=== PATIENT | female | born 1955 | race Asian ===

== ENCOUNTER 2020-09-15 14:01 | Emergency (ER) | payer OTHER ==
[~2020-09-15] VITALS: Ht 157.5 cm; Wt 76.4 kg
[~2020-09-15 14:01] MED LIST: ACET-2247 PO; CALC-1196 PO; DOCU-275 PO; ENOX30DI5 SQ; FAMO20 PO; HYDR-4723 PO; MOM30 PO; PERCT PO
[2020-09-15 14:07] VITALS: BP 196/92
[2020-09-15] MEDS ORDERED: KETOROLAC TROMETHAMINE 30 MG/ML VIAL IM ONE (15:15)
== END 2020-09-15 16:40 | disposition home or self-care (01) ==
LOC: EMS 14:02
DX: S76.011A Strain of muscle, fascia and tendon of right hip, initial encounter (principal); F17.210 Nicotine dependence, cigarettes, uncomplicated; Z88.0 Allergy status to penicillin; X58.XXXA Exposure to other specified factors, initial encounter; Y93.89 Activity, other specified; Y92.89 Other specified places as the place of occurrence of the external cause; Y99.8 Other external cause status
CPT/HCPCS: 73502; 96372; 99283; J1885

== ENCOUNTER 2021-07-08 15:20 | Emergency (ER) | payer MEDICAID, OTHER ==
[~2021-07-08] VITALS: Ht 157.5 cm; Wt 66.4 kg
[~2021-07-08 15:20] MED LIST changes: -DOCU-275 PO; +DOCU-385 PO; -ENOX30DI5 SQ; +ENOX30SY19 SQ; +MAGN-169 PO; -MOM30 PO
[2021-07-08 15:41] VITALS: BP 148/82
[2021-07-08] MEDS ORDERED: PERTUSS(ACELL),DIPH,TET VAC/PF 0.5 ML SYRINGE IM. ONE (15:45)
[2021-07-08] MEDS ORDERED: IBUPROFEN 600 MG TABLET PO ONE (15:45)
[2021-07-08] MEDS ORDERED: DOXYCYCLINE HYCLATE 100 MG TABLET PO ONE (15:45)
[2021-07-08] MEDS ORDERED: BACITRACIN 0.9 GM PACKET OINTMENT TP ONE (15:45)
[2021-07-08] MEDS ORDERED: DOXY-354 PO (16:04)
== END 2021-07-08 16:22 | disposition home or self-care (01) ==
LOC: EMS 15:20
DX: L03.113 Cellulitis of right upper limb (principal); L03.116 Cellulitis of left lower limb; F17.210 Nicotine dependence, cigarettes, uncomplicated; Z98.890 Other specified postprocedural states; Z88.0 Allergy status to penicillin
CPT/HCPCS: 82962; 90471; 90715; 99284

== ENCOUNTER 2022-11-11 16:39 | Emergency (ER) | payer MEDICAID ==
[~2022-11-11] VITALS: Ht 160 cm; Wt 72.7 kg
[~2022-11-11 16:39] MED LIST changes: -ACET-2247 PO; -CALC-1196 PO; -DOCU-385 PO; +DOXY-354 PO; -ENOX30SY19 SQ; -FAMO20 PO; -HYDR-4723 PO; -MAGN-169 PO; -PERCT PO
[2022-11-11 17:12] VITALS: TEMP 97.5
[2022-11-11] MEDS ORDERED: IBUP-45 PO (18:25)
[2022-11-11] MEDS ORDERED: ACET-2080 PO (18:25)
[2022-11-11] MEDS ORDERED: METF-446 PO (18:28)
[2022-11-11] MEDS ORDERED: ATOR20TA65 PO (18:28)
[2022-11-11] MEDS ORDERED: AMLO5TAB66 PO (18:28)
[2022-11-11] MEDS ORDERED: LOSA-381 PO (18:28)
[2022-11-11] MEDS ORDERED: IBUPROFEN 600 MG TABLET PO ONE (18:30)
[2022-11-11] MEDS ORDERED: LIDOCAINE 1% 10 ML VIAL SQ ONE (18:30)
[2022-11-11 19:01] VITALS: BP 155/75; PULSE 65; RESP 16
== END 2022-11-11 19:08 | disposition home or self-care (01) ==
LOC: EMS 16:40
DX: S76.011A Strain of muscle, fascia and tendon of right hip, initial encounter (principal); M17.11 Unilateral primary osteoarthritis, right knee; M67.431 Ganglion, right wrist; E11.9 Type 2 diabetes mellitus without complications; I10 Essential (primary) hypertension; F17.210 Nicotine dependence, cigarettes, uncomplicated; Z98.890 Other specified postprocedural states; Z96.641 Presence of right artificial hip joint; Z88.0 Allergy status to penicillin; W19.XXXA Unspecified fall, initial encounter; Y93.89 Activity, other specified; Y92.89 Other specified places as the place of occurrence of the external cause; Y99.8 Other external cause status
CPT/HCPCS: 99284; 10160; 73502; 73552; J3490

== ENCOUNTER 2023-06-12 17:02 | Emergency (ER) | payer MEDICAID ==
[~2023-06-12] VITALS: Ht 157.5 cm; Wt 77.0 kg
[2023-06-12 17:13] VITALS: BP 174/81; PULSE 75; RESP 18; TEMP 97.9
[2023-06-12 17:25] LABS: GLUCOMETER DEV NAME(LOC) ER.6; GLUCOSE,POINT OF CARE 130 MG/DL (70-110)
[2023-06-12 18:28] LABS: BASOPHILS % (AUTO) 1.1 % (0.0-2.0); EOSINOPHILS % (AUTO) 3.8 % (1.0-6.0); HEMATOCRIT 42.8 % (36-46); HEMOGLOBIN 14.5 g/dL (12.0-16.0); LYMPHOCYTES % (AUTO) 51.2 % (22.0-44.0); MEAN CORPUSCULAR HEMOGLOBIN 31.8 pg (26.0-34.0); MEAN CORPUSCULAR HGB CONC 33.9 G/dL (31.0-37.0); MEAN CORPUSCULAR VOLUME 94 fL (80-100); MONOCYTES # (AUTO) 0.5 K/uL (0.1-1.0); MONOCYTES % (AUTO) 8.6 % (2.0-9.0); NEUTROPHILS # (AUTO) 2.1 K/uL (1.8-7.7); NEUTROPHILS % (AUTO) 35.3 % (40.0-70.0); PLATELET COUNT (AUTO) 222 K/uL (150-450); RED BLOOD CELL COUNT(AUTO) 4.56 MIL/uL (4.00-5.20); RED CELL DISTRIBUTION WIDTH 12.9 % (11.5-14.5); WHITE BLOOD COUNT (AUTO) 5.9 K/uL (4.5-11.0)
[2023-06-12 18:46] LABS: CALCIUM, TOTAL 9.1 mg/dL (8.8-10.5); CREATININE 0.95 mg/dL (0.60-1.30); POTASSIUM 4.5 mmol/L (3.5-5.1); TROPONIN I-HIGH SENSITIVITY 35 ng/L (<51)
[2023-06-12 18:52] LABS: ALBUMIN 3.7 g/dL (3.4-5.0); BILIRUBIN,TOTAL 0.5 mg/dL (0.1-1.0); TOTAL PROTEIN, SERUM 7.8 g/dL (6.4-8.2)
[2023-06-12] MEDS ORDERED: NAPROXEN 250 MG TABLET PO ONE (19:15)
[2023-06-12] MEDS: NAPROXEN 375 MG TABLET PO ONE (20:03)
[2023-06-12] MEDS ORDERED: NAPR-1197 PO (20:27)
== END 2023-06-12 20:00 | disposition home or self-care (01) ==
LOC: EMS 17:05
DX: G89.29 Other chronic pain (principal); M25.551 Pain in right hip; E11.9 Type 2 diabetes mellitus without complications; I10 Essential (primary) hypertension; F17.210 Nicotine dependence, cigarettes, uncomplicated; Z88.0 Allergy status to penicillin
CPT/HCPCS: 71045; 73502; 80053; 82962; 84484; 85025; 93005; 99285; 36415-L1; 36415-TC

== ENCOUNTER 2024-03-26 17:51 | Emergency (ER) | payer MEDICAID ==
[~2024-03-26] VITALS: Ht 160 cm; Wt 68.2 kg
[~2024-03-26 17:51] MED LIST changes: -DOXY-354 PO; +NAPR-1197 PO
[2024-03-26 17:55] VITALS: TEMP 99.7
[2024-03-26 18:06] LABS: COVID AG,FIA SOURCE NASAL SWAB
[2024-03-26 18:35] LABS: INFLUENZA TYPE A NEGATIVE FOR TYPE A (NEGATIVE); INFLUENZA TYPE B NEGATIVE FOR TYPE B (NEGATIVE)
[2024-03-26 18:44] LABS: SARS-COV2 (COVID) ANTIGEN,FIA Positive (Negative)
[2024-03-26] MEDS: ACETAMINOPHEN 325 MG TABLET PO ONE (18:56)
[2024-03-26 19:10] LABS: BASOPHILS % (AUTO) 0.5 % (0.0-2.0); EOSINOPHILS % (AUTO) 0.4 % (1.0-6.0); HEMATOCRIT 48.4 % (36-46); HEMOGLOBIN 16.2 g/dL (12.0-16.0); LYMPHOCYTES # (AUTO) 1.5 K/uL (1.0-4.8); LYMPHOCYTES % (AUTO) 34.1 % (22.0-44.0); MEAN CORPUSCULAR HGB CONC 33.4 G/dL (31.0-37.0); MEAN CORPUSCULAR VOLUME 93 fL (80-100); MONOCYTES # (AUTO) 0.6 K/uL (0.1-1.0); MONOCYTES % (AUTO) 14.8 % (2.0-9.0); NEUTROPHILS # (AUTO) 2.2 K/uL (1.8-7.7); NEUTROPHILS % (AUTO) 50.2 % (40.0-70.0); PLATELET COUNT (AUTO) 165 K/uL (150-450); RED BLOOD CELL COUNT(AUTO) 5.22 MIL/uL (4.00-5.20); WHITE BLOOD COUNT (AUTO) 4.4 K/uL (4.5-11.0)
[2024-03-26 19:23] LABS: CALCIUM, TOTAL 8.9 mg/dL (8.8-10.5); CREATININE 1.28 mg/dL (0.60-1.30); POTASSIUM 3.7 mmol/L (3.5-5.1)
[2024-03-26] MEDS ORDERED: CODE10LI2 PO (19:32)
[2024-03-26] MEDS ORDERED: BENZ-227 PO (19:32)
[2024-03-26] MEDS ORDERED: IBUP-1506 PO (19:32)
[2024-03-26 19:51] VITALS: BP 120/59; PULSE 83; RESP 18; O2SAT 96
== END 2024-03-26 19:55 | disposition home or self-care (01) ==
LOC: EMS 17:51
DX: U07.1 COVID-19 (principal); I10 Essential (primary) hypertension; F17.210 Nicotine dependence, cigarettes, uncomplicated; Z88.0 Allergy status to penicillin; Z96.641 Presence of right artificial hip joint; Z98.890 Other specified postprocedural states; Z20.822 Contact with and (suspected) exposure to COVID-19
CPT/HCPCS: 80048; 85025; 87804; 99283

== ENCOUNTER 2024-08-07 19:08 | Inpatient (IN) | payer MEDICAID ==
[~2024-08-07] VITALS: Ht 160 cm; Wt 75.3 kg
[~2024-08-07 19:08] MED LIST changes: +BENZ-227 PO; +CODE10LI2 PO; +IBUP-1506 PO; -NAPR-1197 PO
[2024-08-07 19:58] LABS: BASOPHILS % (AUTO) 0.8 % (0.0-2.0); EOSINOPHILS % (AUTO) 3.5 % (1.0-6.0); HEMATOCRIT 45.4 % (36-46); HEMOGLOBIN 15.5 g/dL (12.0-16.0); LYMPHOCYTES # (AUTO) 3.4 K/uL (1.0-4.8); LYMPHOCYTES % (AUTO) 41.3 % (22.0-44.0); MEAN CORPUSCULAR HEMOGLOBIN 31.3 pg (26.0-34.0); MEAN CORPUSCULAR HGB CONC 34.1 G/dL (31.0-37.0); MEAN CORPUSCULAR VOLUME 92 fL (80-100); MONOCYTES # (AUTO) 0.7 K/uL (0.1-1.0); NEUTROPHILS # (AUTO) 3.7 K/uL (1.8-7.7); NEUTROPHILS % (AUTO) 45.4 % (40.0-70.0); PLATELET COUNT (AUTO) 214 K/uL (150-450); RED BLOOD CELL COUNT(AUTO) 4.95 MIL/uL (4.00-5.20); RED CELL DISTRIBUTION WIDTH 12.8 % (11.5-14.5); WHITE BLOOD COUNT (AUTO) 8.1 K/uL (4.5-11.0)
[2024-08-07 20:00] LABS: CALCIUM, TOTAL 8.7 mg/dL (8.8-10.5); CREATININE 1.2 mg/dL (0.60-1.30); POTASSIUM 3.6 mmol/L (3.5-5.1)
[2024-08-07 20:06] LABS: ALBUMIN 3.7 g/dL (3.4-5.0); BILIRUBIN,DIRECT 0.1 mg/dL (0.00-0.20); BILIRUBIN,TOTAL 0.3 mg/dL (0.1-1.0); TOTAL PROTEIN, SERUM 7.4 g/dL (6.4-8.2)
[2024-08-07 21:37] LABS: TROPONIN I-HIGH SENSITIVITY 36 ng/L (<51)
[2024-08-07] MEDS: CloNIDine HCL 0.1 MG TABLET PO ONE (23:14)
[2024-08-07] MEDS: SODIUM CHLORIDE 0.9% 1,000 ML IV ONE (23:14)
[2024-08-07] MEDS: ACETAMINOPHEN 325 MG TABLET PO ONE (23:14)
[2024-08-07 23:40] LABS: TROPONIN I-HIGH SENSITIVITY 43 ng/L (<51)
[2024-08-08] VITALS (8 sets, daily range): BP systolic 142–161; BP diastolic 66–78; PULSE 64–84; RESP 17–18; TEMP 97.7–98.8; O2SAT 95–100
[2024-08-08] MEDS: HydrALAZINE HCL 20 MG/ML VIAL IVP ONE (00:36)
[2024-08-08] MEDS ORDERED: MORPHINE SULFATE 2 MG/ML SYRINGE IVP PRN (00:45)
[2024-08-08] MEDS ORDERED: HYDROCODONE/ACETAMINOPHEN 5-325 MG TABLET PO PRN (00:45)
[2024-08-08] MEDS ORDERED: ONDANSETRON HCL 4 MG/2 ML VIAL IVP PRN (00:45)
[2024-08-08] MEDS ORDERED: MAGNESIUM HYDROXIDE SUSPENSION 30 ML UDCUP PO PRN (00:45)
[2024-08-08] MEDS ORDERED: ACETAMINOPHEN 325 MG TABLET PO PRN (00:45)
[2024-08-08] MEDS ORDERED: BISACODYL 10 MG RECTAL RECTAL SUPPOSITORY PR PRN (00:45)
[2024-08-08 01:10] LABS: TROPONIN I-HIGH SENSITIVITY 38 ng/L (<51)
[2024-08-08] MEDS: HydrALAZINE HCL 20 MG/ML VIAL IVP PRN (04:24)
[2024-08-08] MEDS: ASPIRIN 81 MG CHEWABLE TABLET PO SCH (08:52)
[2024-08-08] MEDS: PANTOPRAZOLE SODIUM 40 MG DR TABLET PO SCH (08:52)
[2024-08-08] MEDS: DOCUSATE SODIUM 100 MG CAPSULE PO SCH (08:52)
[2024-08-08] MEDS: HEPARIN SODIUM,PORCINE 5,000 UNITS/ML VIAL SQ SCH (08:52)
[2024-08-08 08:53] LABS: TROPONIN I-HIGH SENSITIVITY 35 ng/L (<51)
[2024-08-08] MEDS: NITROGLYCERIN 2% (1 GM=INCH) OINTMENT PACKET TP SCH (08:53)
[2024-08-08 12:58] LABS: TROPONIN I-HIGH SENSITIVITY 39 ng/L (<51)
[2024-08-08] MEDS: ZOLPIDEM TARTRATE 5 MG TABLET PO PRN (22:08)
[2024-08-09 04:08] VITALS: BP 145/76; PULSE 83; RESP 18; TEMP 98.4; O2SAT 96
[2024-08-09 05:41] LABS: GLUCOMETER DEV NAME(LOC) 5S.2D; GLUCOSE,POINT OF CARE 160 MG/DL (70-110)
[2024-08-09 06:24] LABS: BASOPHILS % (AUTO) 0.6 % (0.0-2.0); EOSINOPHILS % (AUTO) 2.3 % (1.0-6.0); HEMATOCRIT 45.9 % (36-46); HEMOGLOBIN 15.6 g/dL (12.0-16.0); LYMPHOCYTES # (AUTO) 3.3 K/uL (1.0-4.8); LYMPHOCYTES % (AUTO) 36.4 % (22.0-44.0); MEAN CORPUSCULAR HEMOGLOBIN 31.2 pg (26.0-34.0); MEAN CORPUSCULAR VOLUME 92 fL (80-100); MONOCYTES # (AUTO) 0.7 K/uL (0.1-1.0); MONOCYTES % (AUTO) 7.3 % (2.0-9.0); NEUTROPHILS # (AUTO) 4.8 K/uL (1.8-7.7); NEUTROPHILS % (AUTO) 53.4 % (40.0-70.0); PLATELET COUNT (AUTO) 224 K/uL (150-450); RED BLOOD CELL COUNT(AUTO) 5.01 MIL/uL (4.00-5.20); RED CELL DISTRIBUTION WIDTH 13.1 % (11.5-14.5)
[2024-08-09 06:32] LABS: ANION GAP 7 mmol/L (8-16); CALCIUM, TOTAL 9.1 mg/dL (8.8-10.5); CARBON DIOXIDE 23 mmol/L (22-29); CHLORIDE 107 mmol/L (98-107); CREATININE 0.85 mg/dL (0.60-1.30); GLOMERULAR FILTR. RATE CALC > 60 mL/min (>60); GLUCOSE,RANDOM 154 mg/dL (70-110); POTASSIUM 3.8 mmol/L (3.5-5.1); SODIUM SERUM 137 mmol/L (136-145); UREA NITROGEN, BLOOD 15 mg/dL (7-18)
[2024-08-09 06:40] LABS: CHOL/HDL RATIO 3.7 (3.9-5.7)
[2024-08-09 08:08] VITALS: BP 150/82; RESP 18; TEMP 97.5
[2024-08-09] MEDS: AmLODIPine BESYLATE 5 MG TABLET PO SCH (08:16)
[2024-08-09 08:54] VITALS: BP 119/77
[2024-08-09 11:46] VITALS: BP 135/67; PULSE 79; RESP 18; TEMP 98.1; O2SAT 95
[2024-08-09 12:11] LABS: GLUCOMETER DEV NAME(LOC) 5S.1D; GLUCOSE,POINT OF CARE 182 MG/DL (70-110)
[2024-08-09] MEDS ORDERED: METF-1211 PO (13:03)
[2024-08-09] MEDS ORDERED: AMLO-257 PO (13:03)
[2024-08-09] MEDS ORDERED: ASPI-1450 PO (13:03)
== END 2024-08-09 13:45 | disposition home or self-care (01) | DRG 199 ==
LOC: EMS 19:08 → EDH 08-08 00:27 → 5S 08-08 03:31
PROVIDERS: ADMIT Internal Medicine; ATTEND Internal Medicine
DX: I16.0 Hypertensive urgency (principal); I24.9 Acute ischemic heart disease, unspecified; E87.1 Hypo-osmolality and hyponatremia; I10 Essential (primary) hypertension; R73.9 Hyperglycemia, unspecified; Z96.649 Presence of unspecified artificial hip joint; Z88.0 Allergy status to penicillin; Z87.891 Personal history of nicotine dependence; Z79.82 Long term (current) use of aspirin; Z79.84 Long term (current) use of oral hypoglycemic drugs; Z79.899 Other long term (current) drug therapy
CPT/HCPCS: 70450; 72050; 80048; 80061; 80076; 82962; 83036; 84484; 85025; 93005; 93306; 96360; 99285; J0360; J1644; J7030; 36415-L1; 36415-TC